=== PATIENT | male | born 1955 | race African-American/Black ===

== ENCOUNTER → 2018-11-26 | Outpatient (CLI) | payer OTHER ==
[2018-07-04 12:08] VITALS: BP 156/75
[~2018-11-26] MED LIST: ASPI-612 PO; ATORVASTATIN CA80 MG PO; CHOL100013 PO; CRESTOR20 MG PO; INSU100C SQ; INSU100I13 SQ; LISI-334 PO; METO-239 PO; PRAS10TA9 PO; PREG75CA PO
--- NOTE | 2018-11-26 09:52 | CARD ---
MR#: [id number] Date of Study: 11/26/2018 Ordering Physician: CAROLINE JUNIOR, Referring Physician: CAROLINE JUNIOR, Tech: Lynn Sequeira APPROVED REPORT EXAM: Two-dimensional and M-mode echocardiogram with Doppler and color Doppler. Other Information Quality : GoodHR: 70bpm INDICATION Post STEMI RISK FACTORS Hypertension Hyperlipidemia Diabetes 2D DIMENSIONS RVDd3.0 (2.9-3.5cm)Left Atrium(2D)3.6 (1.6-4.0cm) IVSd1.2 (0.7-1.1cm)Aortic Root(2D)3.9 (2.0-3.7cm) LVDd4.9 (3.9-5.9cm)LVOT Diameter2.2 (1.8-2.4cm) PWd1.1 (0.7-1.1cm)LVDs4.1 (2.5-4.0cm) FS (%) 16.0 %SV38.5 ml LVEF(%)33.6 (>50%) Aortic Valve AoV Peak Randall.119.6cm/sAoV VTI25.3cm AO Peak GR.5.7mmHgLVOT Peak Randall.90.4cm/s LVOT VTI 20.69cmAO Mean GR.3mmHg EUGENIA (VMAX)2.38ql7DPH (VTI)3.21cm2 Mitral Valve MV E Jxplzfob86.2cm/sMV DECEL BTYL313yo MV A Qvqjixhh75.7cm/sMV ESE70vm E/A Ratio1.4MVA (PHT)3.35cm2 TDI E/Lateral E'8.7E/Medial E'9.2 Pulmonary Valve PV Peak Jsjdtocq78.6cm/sPV Peak Grad.4mmHg Tricuspid Valve TR P. Rjffwbbc644jb/sRAP LEAPGFUC1bxAa TR Peak Gr.36emCoEKEV25efEb Pulmonary Vein S1 Iigfhtby09.3cm/sD2 Rseesygo69.0cm/s PVa gtzzofmv000nulb LEFT VENTRICLE The left ventricle is normal size. There is mild concentric left ventricular hypertrophy. The left ve ntricular systolic function is normal and the ejection fraction is mildly diminished. EF 45% The mid to distal septum, apex and distal anterior wall are moderately hypokinetic. Transmitral Doppler flow pattern is Grade II-pseudonormal filling dynamics. RIGHT VENTRICLE The right ventricle is normal size. There is normal right ventricular wall thickness. The right ventr icular systolic function is normal. ATRIA The left atrium is mildly dilated. The right atrium size is normal. The interatrial septum is intact with no evidence for an atrial septal defect or patent foramen ovale as noted on 2-D or Doppler imagi ng. AORTIC VALVE The aortic valve is normal in structure and function. Doppler and Color Flow revealed no significant aortic regurgitation. There is no significant aortic valvular stenosis. MITRAL VALVE The mitral valve is normal in structure and function. There is no evidence of mitral valve prolapse. There is no mitral valve stenosis. Doppler and Color Flow revealed no mitral valve regurgitation note d. TRICUSPID VALVE The tricuspid valve is normal in structure and function. Doppler and Color Flow revealed trace tricus pid regurgitation. There is no tricuspid valve stenosis. PULMONIC VALVE The pulmonic valve is not well visualized. Doppler and Color Flow revealed trace pulmonic valvular re gurgitation. GREAT VESSELS The aortic root is normal size. The IVC is normal in size and collapses >50% with inspiration. PERICARDIAL EFFUSION There is no evidence of significant pericardial effusion. Critical Notification Critical Value: No <Conclusion> The left ventricular systolic function is normal and the ejection fraction is mildly diminished. EF 4 5% The mid to distal septum, apex and distal anterior wall are moderately hypokinetic. Signed by : Caroline Junior, Electronically Approved : 11/26/2018 09:50:29
--- NOTE | 2018-11-26 11:17 | RAD ---
MR#: [id number] Date of Study: 11/26/2018 Ordering Physician: CAROLINE MCLEAN, Referring Physician: Carlos MCCARTHY: Dang Dykes RDMS RVT APPROVED REPORT Patient Location: OUT-PATIENT Indications Claudication:Bilaterally VELOCITY AND DOPPLER WAVEFORM ANALYSIS RIGHT cm/secWaveformSeverity LEFT cm/secWaveform Severity pCFA 111.2TriphasicpCFA 100.3Triphasic Prof Fem Art. 75.8TriphasicProf Fem Art. 68.8Triphasic Fem Art Prox. 90.0TriphasicFem Art Prox. 70.8Triphasic Fem Art Mid. 89.3TriphasicFem Art Mid. 99.1Triphasic Fem Art Dist. 82.7TriphasicFem Art Dist. 94.7Triphasic Pop Art(Fossa) 67.7TriphasicPop Art([place]) 65.8Triphasic CRIMINAL COURT JUDGE Dist. 50.8TriphasicPTA Dist. 36.6Biphasic Per Art Dist.55.4TriphasicPer Art Dist.73.1Triphasic VANESSA Dist. 52.5TriphasicATA Dist. 25.3Biphasic DPA 104TriphasicDPA 28Biphasic Findings Grayscale images of the bilateral lower extremity arterial vessels reveals mild to moderate diffuse a therosclerotic plaque. Spectral waveforms, color Doppler and velocities are within normal limits in the right lower extremit y. In the left lower 70 spectral waveforms color Doppler and velocities are within normal limits from the common femoral artery to the popliteal segment. Below the knee the anterior tibial and posterior tibial velocities are diminished but in a biphasic wave pattern likely suggestive of diffuse disease . There is normal triphasic peroneal wave pattern. Critical Notification Critical Value: No <Conclusion> 1. 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 Signed by : Caroline Mclean, Electronically Approved : 11/26/2018 11:14:59
== END | disposition home or self-care (01) ==
LOC: ECHO 07:47
PROVIDERS: ATTEND Internal Medicine Cardiovascular Disease
DX: I70.293 Other atherosclerosis of native arteries of extremities, bilateral legs (principal); I11.9 Hypertensive heart disease without heart failure; E78.5 Hyperlipidemia, unspecified; E11.9 Type 2 diabetes mellitus without complications; I25.2 Old myocardial infarction
CPT/HCPCS: 93306; 93925